=== PATIENT | male | born 1950 | race Caucasian/White ===

== ENCOUNTER 2017-01-20 12:05 | Emergency (ER) | payer OTHER ==
[~2017-01-20] VITALS: Ht 170.2 cm; Wt 81.6 kg
[~2017-01-20 12:05] MED LIST: ASPI81TA31 PO; ATOR40TA PO; Acetaminophen PO; BISA10SU61 RC; Blood Sugar Diagnostic VI; DEXT50DI8 IV; DOCU-25 PO; GLIP5TAB13 PO; INSU100V28 SQ; MULT-70 PO; Metformin Hcl PO; Valsartan PO
--- NOTE | 2017-01-20 13:02 | NUR ---
DR ZABALA AT THE BEDSIDE FOR EVAL AND EXAM.
[2017-01-20 13:30] LABS: BASOPHILS % (AUTO) 0.2 % (0.0-2.0); EOSINOPHILS # (AUTO) 0.2 K/uL (0.0-0.7); EOSINOPHILS % (AUTO) 3.1 % (0.0-7.0); HEMATOCRIT 41.7 % (40.0-50.0); LYMPHOCYTES # (AUTO) 0.8 K/uL (0.8-4.8); LYMPHOCYTES % (AUTO) 15.5 % (20.5-51.5); MEAN CORPUSCULAR HEMOGLOBIN 29.8 uug (27.0-31.0); MEAN CORPUSCULAR HGB CONC 34 g/dL (32.0-37.0); MEAN CORPUSCULAR VOLUME 89.2 fL (82.0-92.0); MONOCYTES # (AUTO) 0.2 K/uL (0.1-1.30); MONOCYTES % (AUTO) 4.6 % (0.0-11.0); NEUTROPHILS # (AUTO) 4.1 K/uL (1.8-8.9); NEUTROPHILS % (AUTO) 76.6 % (38.5-71.5); PLATELET COUNT (AUTO) 158 K/uL (150-450); RED BLOOD CELL COUNT(AUTO) 4.68 MIL/uL (4.70-6.10); RED CELL DISTRIBUTION WIDTH 12.9 % (11.5-14.5); WHITE BLOOD COUNT (AUTO) 5.3 K/uL (4.0-11.2)
[2017-01-20 13:43] LABS: CALCIUM 9.1 mg/dL (8.5-10.1); CREATININE 0.7 mg/dL (0.6-1.3); POTASSIUM 3.8 mmol/L (3.5-5.1)
[2017-01-20 13:45] LABS: TROPONIN I 0.029 ng/mL (0.00-0.056)
[2017-01-20 13:49] LABS: ALBUMIN 3.5 g/dL (3.4-5.0); BILIRUBIN,DIRECT 0.2 mg/dL (0.0-0.2); BILIRUBIN,TOTAL 0.8 mg/dL (0.2-1.0); TOTAL PROTEIN, SERUM 7.7 g/dL (6.4-8.2)
[2017-01-20 13:51] LABS: LACTIC ACID 1.3 mmol/L (0.4-2.0)
--- NOTE | 2017-01-20 13:59 | NUR ---
PT BACK FROM CT, NO C/O PAIN AT THIS TIME.
--- NOTE | 2017-01-20 15:44 | NUR ---
ER SPOKE TO DR UHMPHREY RE PT'S PLACEMENT/ADMIT. AWAITING INFO FROM TELEVISION CABLE INSTALLER.
[2017-01-20 15:45] LABS: *BILIRUBIN,URIN NEGATIVE (NEGATIVE); *BLOOD, URINE NEGATIVE (NEGATIVE); *CLARITY,URINE CLEAR (CLEAR); *COLOR,URINE YELLOW (YELLOW); *KETONES,URINE 1+ (NEGATIVE); *PROTEIN,URINE TRACE (NEGATIVE); LEUKOCYTE ESTERASE ,URINE NEGATIVE (NEGATIVE); NITRITE, URINE NEGATIVE (NEGATIVE); PH,URINE 7.5 (5.0-8.0); UGLUCOSE NEGATIVE (NEGATIVE)
[2017-01-20] MEDS ORDERED: METF500T4 PO (15:50)
[2017-01-20 15:54] LABS: MUCUS,URINE MODERATE /LPF (0-FEW); SPERM,URINE FEW /HPF (NONE SEEN); WBC,URINE 0-3 /HPF (0-3)
--- NOTE | 2017-01-20 16:36 | NUR ---
Patient is resting comfortably in bed with eyes closed, NAD NOTED.
--- NOTE | 2017-01-20 16:55 | NUR ---
ER MD SPOKE TO REGMARY PAGE(DR EASLEY), REGARDING PT ADMIN. AWAITING VACUUM FORMING MACHINE OPERATOR FROM [facility] TO CALL BACK RE PLAN OF CARE FOR PT.
--- NOTE | 2017-01-20 18:20 | NUR ---
CASSI(PLANT CHIEF FROM [employer]) CALLED, STATING WILL CALL BACK W/ INFO FOR SNIF. DIRECT # FOR CASSI IS [phone].
--- NOTE | 2017-01-20 19:35 | NUR ---
Spoke to CASSI Ford who requested additional information, faxed ER physician's notes.
--- NOTE | 2017-01-20 21:21 | NUR ---
Call placed to CASSI from [facility], no answer. Left message requesting update.
--- NOTE | 2017-01-20 21:27 | NUR ---
Nikki returned call, waiting on response from SNF. Additional delay is due to technical problems at the prospective SNF's fax machine.
--- NOTE | 2017-01-20 23:33 | NUR ---
Call placed to CASSI MONROE. She states that she is having difficulty locating a SNF at this time of night. She is waiting on a response from a SNF regarding possible admission.
[2017-01-21] MEDS ORDERED: HYDROCODONE/APAP 10-325 MG TABLET ONE ×2 (00:05→06:43)
--- NOTE | 2017-01-21 00:59 | NUR ---
Per [facility], Nikki called to report that she would be unable to place the patient tonight at a SNF. Instructed to keep patient in ER until AM. Nikki stated that she would call the on-call physician.
--- NOTE | 2017-01-21 01:30 | NUR ---
Patient is resting comfortably in bed with eyes closed
--- NOTE | 2017-01-21 02:40 | NUR ---
Patient is resting comfortably in bed with eyes closed
--- NOTE | 2017-01-21 04:01 | NUR ---
CASSI from [facility] called and informed staff that patient has been accepted at [facility] in [place] [ ]. S transportation arranged and expected to arrive to transport patient at 0800.
--- NOTE | 2017-01-21 06:10 | NUR ---
Fidencio gonzalez in ED - 01/21/17 at 0611 by ALONZO Patient discharged to home in stable conditon. Written and verbal after care instructions given. Patient verbalizes understanding of instructions.
--- NOTE | 2017-01-21 06:11 | NUR ---
Patient is resting comfortably in bed with eyes closed
[2017-01-21] MEDS: HYDROCODONE/APAP 10-325 MG TABLET PO ONE ×2 (06:42)
[2017-01-21] MEDS ORDERED: METFORMIN HCL 500 MG TABLET ONE (07:03)
[2017-01-21] MEDS: glipiZIDE 5 MG TABLET PO SCH (07:04)
[2017-01-21] MEDS: METFORMIN HCL 500 MG TABLET PO ONE (07:04)
--- NOTE | 2017-01-21 07:20 | NUR ---
rec'd sbar report from marylu gallego, pt resting, no distress noted. presently awaiting for emt/ambulance transfer to snf facility at [place]. eta 0800.
--- NOTE | 2017-01-21 08:11 | NUR ---
report to emt's and copy of chart also given. pt had breakfast, pt also took all belongings.
== END 2017-01-21 08:25 | disposition home or self-care (01) ==
LOC: ER 12:07
DX: S29.9XXA Unspecified injury of thorax, initial encounter (principal); S22.41XA Multiple fractures of ribs, right side, initial encounter for closed fracture; I10 Essential (primary) hypertension; Z79.4 Long term (current) use of insulin; Z79.82 Long term (current) use of aspirin; W18.30XA Fall on same level, unspecified, initial encounter; Y93.89 Activity, other specified; Y99.8 Other external cause status; Y92.89 Other specified places as the place of occurrence of the external cause
CPT/HCPCS: 36415; 70030-TC; 70450; 71010; 72125; 83605; 85025; 85730; 87040; 87086; 93005; A4663